=== PATIENT | female | born 1985 | race Caucasian/White ===

== ENCOUNTER 2023-02-04 19:13 | Outpatient (CLI) | payer BC, SELFPAY | END 2023-02-04 19:14 | disposition home or self-care (01) | LOC: AMB 02-21 03:22 | PROVIDERS: PCP Family Medicine; Visit Provider Family Medicine | DX: I48.92 Unspecified atrial flutter (principal); I10 Essential (primary) hypertension | CPT/HCPCS: A0998 ==